=== PATIENT | female | born 1990 | race Caucasian/White ===

== ENCOUNTER 2020-10-11 23:28 | Emergency (ER) | payer OTHER ==
[~2020-10-11] VITALS: Ht 172.7 cm; Wt 62.6 kg
[2020-10-11 23:34] VITALS: BP 157/82
--- NOTE | 2020-10-11 23:34 | NUR ---
TO BED AMBULATORY
--- NOTE | 2020-10-12 00:29 | NUR ---
IV not inserted per ERMD to not insert IV.
[2020-10-12] MEDS ORDERED: ALUMINUM HYD/MAG/SIMETHICONE 30 ML UDC PO ONE (00:30)
--- NOTE | 2020-10-12 00:30 | NUR ---
GLUCOSE VALUE 66. PROVIDED PATIENT W SANDWICH, JUICE AND FRUIT, PER ERMD.
[2020-10-12 00:49] LABS: BILIRUBIN,URINE NEGATIVE (NEGATIVE); BLOOD, URINE 3+ (NEGATIVE); COLOR,URINE YELLOW (YELLOW); LEUKOCYTE ESTERASE ,URINE NEGATIVE (NEGATIVE); NITRITE, URINE NEGATIVE (NEGATIVE); PH,URINE 5.5 (5.0-9.0); UGLUCOSE NEGATIVE (NEGATIVE)
[2020-10-12 00:50] LABS: BASOPHILS # (AUTO) 0.1 K/uL (0.00-0.22); BASOPHILS % (AUTO) 0.6 % (0.0-2.0); EOSINOPHILS # (AUTO) 0.1 K/uL (0-0.4); EOSINOPHILS % (AUTO) 1.3 % (0.0-4.0); HEMATOCRIT 37.3 % (36-48); HEMOGLOBIN 12.3 g/dL (12.0-16.0); LYMPHOCYTES % (AUTO) 33.4 % (20.5-51.1); MEAN CORPUSCULAR HEMOGLOBIN 28 pg (27-31); MEAN CORPUSCULAR HGB CONC 33 g/dL (33-37); MEAN CORPUSCULAR VOLUME 84.1 fL (80-94); MONOCYTES # (AUTO) 0.7 K/uL (0.8-1.0); MONOCYTES % (AUTO) 7.9 % (1.7-9.3); NEUTROPHILS # (AUTO) 5.2 K/uL (1.8-7.7); NEUTROPHILS % (AUTO) 56.8 % (42.2-75.2); PLATELET COUNT (AUTO) 292 K/uL (140-450); RED BLOOD CELL COUNT(AUTO) 4.44 MIL/uL (4.20-5.40); RED CELL DISTRIBUTION WIDTH 18.4 % (11.6-13.7); WHITE BLOOD COUNT (AUTO) 9.1 K/uL (4.8-10.8)
[2020-10-12 01:01] LABS: APPEARANCE,URINE HAZY (CLEAR)
[2020-10-12 01:03] LABS: RBC,URINE >100 /HPF (0-5); WBC,URINE NONE SEEN /HPF (0-5)
[2020-10-12 01:16] LABS: ALBUMIN 3.9 g/dL (3.4-5.0); ANION GAP 18.2 (8-16); CARBON DIOXIDE 24.4 mmol/L (21-32); CREATININE 0.8 mg/dL (0.6-1.3); POTASSIUM 3.6 mmol/L (3.5-5.1); TOTAL BILIRUBIN 0.4 mg/dL (0.0-1.0)
--- NOTE | 2020-10-12 01:30 | NUR ---
Patient sitting on chair, breathing even and unlabored. Patient now states she is allergic to shrimp. NAD noted, will continue to monitor.
--- NOTE | 2020-10-12 01:55 | NUR ---
Patient ambulated to bathroom w steady gait.
--- NOTE | 2020-10-12 02:00 | NUR ---
ERMD at bedside speaking w patient.
[2020-10-12] MEDS ORDERED: OMEP20EC11 PO (02:25)
[2020-10-12 02:35] VITALS: BP 128/86
--- NOTE | 2020-10-12 02:35 | NUR ---
Patient discharged with v/s stable. Written and verbal after care instructions given and explained. Patient alert, oriented and verbalized understanding of instructions. Ambulatory with steady gait. All questions addressed prior to discharge. ID band removed. Patient advised to follow up with PMD. Rx of OMEPRAZOLE given. Patient educated on indication of medication including possible reaction and side effects. Opportunity to ask questions provided and answered.
== END 2020-10-12 02:35 | disposition home or self-care (01) ==
LOC: MED 23:28
DX: R10.9 Unspecified abdominal pain (principal); E07.9 Disorder of thyroid, unspecified; E11.9 Type 2 diabetes mellitus without complications
CPT/HCPCS: 36415; 80053; 81001; 82150; 83690; 84703; 85025; 99283